=== PATIENT | male | born 1975 | race Caucasian/White ===

== ENCOUNTER 2022-03-28 14:48 | Emergency (ER) | payer OTHER ==
[~2022-03-28] VITALS: Ht 180.3 cm; Wt 90.7 kg
[2022-03-28] MEDS ORDERED: SUBOXONE 8 MG-1 EACH (15:34)
== END 2022-03-28 19:16 | disposition home or self-care (01) ==
LOC: ER 14:48
DX: F11.23 Opioid dependence with withdrawal (principal)

== ENCOUNTER 2022-07-03 19:53 | Emergency (ER) | payer OTHER ==
[~2022-07-03] VITALS: Ht 180.3 cm; Wt 70.3 kg
[~2022-07-03 19:53] MED LIST: SUBOXONE 8 MG-1 EACH
== END 2022-07-04 02:08 | disposition home or self-care (01) ==
LOC: ER 19:53
DX: F11.13 Opioid abuse with withdrawal (principal); L02.413 Cutaneous abscess of right upper limb

== ENCOUNTER → 2023-12-17 | Emergency (ER) | payer OTHER ==
[~2023-12-17] VITALS: Ht 177.8 cm; Wt 86.2 kg
== END | disposition home or self-care (01) ==
LOC: ER 08:57
DX: L25.9 Unspecified contact dermatitis, unspecified cause (principal)